=== PATIENT | male | born 1980 | race Caucasian/White ===

== ENCOUNTER 2019-09-13 12:16 | Outpatient (CLI) | payer OTHER ==
--- NOTE | 2019-09-13 15:26 | MRI ---
MRI BRAIN WITH AND WITHOUT CONTRAST: Date: 09/13/2019 INDICATION: Multiple sclerosis. Comparison made to an outside MRI of brain and orbits performed 04/30/17. That exam does not exhibit postcontrast images of the whole brain but only the orbits. A FLAIR sequence of the whole brain is in cluded in that study and is compared to the current exam. FINDINGS: Extensive white matter abnormality seen in both cerebral hemispheres. Subcortical and periventricular white matter involvement is seen. Corpus callosal involvement and periventricular involvement is pro minent. When compared to the previous FLAIR sequence of 04/30/17, there has been increase in the white matter lesions since that time. Subcortical lesions have increased in both cerebral hemispheres. Periventri cular lesions have also increased. Postcontrast images show areas of active demyelination. There is a new lesion in the corpus callosum on the right which shows diffuse enhancement. This lesion measures 1.0 cm AP dimension. The diffuse e nhancement indicates an active demyelination. Small focus of enhancement is seen within a subcortical white matter lesion in the posterior right pa rietal lobe indicating active plaque. Another focus of enhancement is seen in the periventricular white matter of the posterior left tempor al lobe indicating active plaque formation. IMPRESSION: 1. Progression of subcortical, periventricular and callosal white matter lesions when compared to ou ide MRI from 04/30/17. Increasing number of lesions in both cerebral hemispheres. 2. Postcontrast images today show areas of active demyelination plaque. The largest is a corpus call osal lesion on the right as described above. There are other foci of enhancement indicating active pl aque formation in the subcortical region of the right parietal lobe and in the periventricular region of the posterior left temporal lobe. POS: [facility]
== END 2019-09-13 12:17 | disposition home or self-care (01) ==
LOC: SCSMRI 12:16
PROVIDERS: ATTEND Psychiatry & Neurology Neurology
DX: G35 Multiple sclerosis (principal); G93.89 Other specified disorders of brain
CPT/HCPCS: 70553